=== PATIENT | female | born 1995 | race Caucasian/White ===

== ENCOUNTER 2016-04-13 21:37 | Emergency (ER) | payer BC ==
[~2016-04-13] VITALS: Ht 170.2 cm; Wt 106.5 kg
[~2016-04-13 21:37] MED LIST: PERM59LI8 TOP; PREN1TAB49 PO; [UNRECOGNIZED DRUG - CODE] TP
[2016-04-13 22:40] VITALS: Ht 170.2 cm; Wt 106.5 kg
--- NOTE | 2016-04-14 01:08 | ERD ---
ER Documentation Chief Complaint Date/Time DATE: 04/14/16 TIME: 01:06 Chief Complaint cough with whitish/greenish phlegm x 2 days, when it happens RLQ pain. HPI 20-year-old female presents to emergency department for complaints of cough for 2 days. Patient has been having cough with whitish greenish phlegm for the last 2 days, does not cough up any blood. Patient does not have any shortness breath or wheezing. Patient took some gkox-uyd-cptienn cough drops up with symptoms with mild relief. Patient noticed that she's been having right lower quadrant abdominal pain whenever she coughs, it got worse prior to coming here in emergency department, lasted for 30 minutes, sharp pain, 6/10 scale, only when she is coughing. Patient denies any nausea vomiting diarrhea. Patient denies hematuria or dysuria. Patient denies any incontinence. Patient denies any fever or chills. ROS All systems reviewed and are negative except as per history of present illness. Medications Home Meds Active Scripts Piperonyl Butoxide/Pyrethrins (Pyrethrin Lice Treatment) 118 Ml Liquid, 118 ML TP ONCE for 1 Day Prov:LARRY COLEMAN PA-C 09/15/15 Permethrin* (Nix* 1% Solution) 59 Ml Soln, 1 APPLIC TOP ONCE for 1 Day, BOTTLE Prov:LARRY COLEMAN PA-C 09/15/15 Reported Medications Vits W-Ca,Fe,Fa(<1MG) () 1 Tab Tablet, PO DAILY 10/04/10 Allergies Allergies: Coded Allergies: Penicillins (Verified Adverse Reaction, Mild, RASH, 10/04/10) PMhx/Soc Medical and Surgical Hx: pt denies Medical Hx History of Surgery: No Anesthesia Reaction: No Hx Neurological Disorder: No Hx Respiratory Disorders: No Hx Cardiac Disorders: No Hx Psychiatric Problems: No Hx Miscellaneous Medical Probl: No Hx Alcohol Use: No Hx Substance Use: No Hx Tobacco Use: No FmHx Family History: other (breast cancer) Physical Exam Vitals Vital Signs Date Time Temp Pulse Resp B/P Pulse Ox O2 Delivery O2 Flow Rate FiO2 04/13/16 22:40 99.0 87 20 145/90 100 Physical Exam GENERAL: The patient is well developed and appropriate for usual state of health, in no apparent distress. CHEST: Clear to auscultation bilaterally. There are no rales, wheezes or rhonchi. HEART: Regular rate and rhythm. No murmurs, clicks, rubs or gallops. No S3 or S4. ABDOMEN: Soft, nontender and nondistended. Good bowel sounds. No rebound or guarding. No gross peritonitis. No gross organomegaly or masses. No Brownlee sign or McBurney point tenderness. BACK: No midline or flank tenderness. EXTREMITIES: Equal pulses bilaterally. There is no peripheral clubbing, cyanosis or edema. No focal swelling or erythema. Full range of motion. Grossly neurovascularly intact. NEURO: Alert and oriented. Cranial nerves 2-12 intact. Motor strength in all 4 extremities with 5/5 strength. Sensation grossly intact. Normal speech and gait. SKIN: There is no apparent rash or petechia. The skin is warm and dry. HEMATOLOGIC AND LYMPHATIC: There is no evidence of excessive bruising or lymphedema. No gross cervical, axillary, or inguinal lymphadenopathy. Results 24 hrs Laboratory Tests Test 04/14/16 01:28 Bedside Urine Blood Trace-intact Bedside Urine Glucose (UA) Negative Bedside Urine Ketones (LAB) Negative Bedside Urine Leukocyte Esterase (L 1+ Bedside Urine Nitrite (LAB) Negative Bedside Urine Protein (LAB) Negative Bedside Urine pH (LAB) 5.5 PROCEDURE: Pelvic ultrasound, limited. CLINICAL INDICATION: Pelvic pain. TECHNIQUE: Multiple sonographic images of the pelvis were obtained utilizing a transabdominal technique. The images were reviewed on a PACS workstation. COMPARISON: None. FINDINGS: The uterus is visualized and measures 7.9 x 3.8 x 6.0 cm. No abnormal uterine mass is identified. The endometrial echo complex is homogeneous and measures 1.5 mm. There is no evidence for free fluid. The right ovary has a normal echotexture and measures 6.7 x 4.8 x 5.2 cm. The left ovary has a normal echotexture and measures 3.0 x 1.9 x 2.3 cm. There is normal flow to both ovaries. There is a hypoechoic cyst within the right ovary measuring 5.2 x 4.4 x 4.3 cm. No adnexal masses are identified. IMPRESSION: Right ovarian 5.2 cm cyst. .Vishnu Leslie, MD, MD Date Time Electronically viewed and signed by .Vishnu Leslie MD, MD on 04/14/2016 03:24 .T/ PROCEDURE: CT Abdomen and pelvis without contrast. CLINICAL INDICATION: Abdominal pain. TECHNIQUE: CT scan of the abdomen and pelvis was performed on a multi- detector high-resolution CT scanner. Contiguous axial images were obtained from the lung bases to the ischial tuberosities without intravenous contrast. Coronal and sagittal reformatted images were also obtained. Images were reviewed on the PACS workstation. One or more of the following dose reduction techniques were used: - Automated exposure control. - Adjustment of the mA and/or kV according to patient size. - Use of iterative reconstruction technique. Exam CTD/vol = 22.97 mGy. Total exam DLP = 1310.44 mGy-cm. COMPARISON: None. FINDINGS: Evaluation of the lung bases demonstrates no pleural or parenchymal disease. Abdomen: The liver is normal in size. There is no focal mass or dilatation of the biliary tree. The gallbladder is not distended. The spleen, pancreas and bilateral adrenal glands are within normal limits. Bilateral kidneys are normal in size with no contour deforming mass identified. There is a 1 mm calculus within the mid left kidney. There is no radiopaque ureteral calculus identified. There is no hydronephrosis or hydroureter. There is no retroperitoneal adenopathy. The abdominal aorta is of normal caliber. There is no abnormal bowel wall thickening or distension. There is no bowel obstruction or free air. A normal appendix is identified. There is no diverticulosis or diverticulitis. There is no ascites. Pelvis: The bladder is unremarkable. The uterus is unremarkable. There is a cyst within the right adnexa measuring 5.5 x 4.5 cm. There is no significant pelvic adenopathy or free fluid. Evaluation of the osseous structures demonstrates no suspicious lytic or blastic lesion. IMPRESSION: Right adnexal 5.5 cm cyst. Nonobstructing left renal calculus. Otherwise no acute abnormality identified within the abdomen and pelvis. .Vishnu Leslie MD, MD Date Time Electronically viewed and signed by .Vishnu Leslie MD, MD on 04/14/2016 02:12 .T/ CC: FRANCOISE VIDAL [employer] Procedures/MDM Medical Decision Making: Patient's symptoms of right lower quadrant pain after coughing can be muscular pain, patient also has an incidental finding of a right ovarian cyst which may be causing also the pain. Patient also has urinary tract infection and will be treated. No symptoms of pyelonephritis. There is low suspicion for abdominal emergencies at this time. Patients abdominal exam is normal at this time. Patients radiology exam does not show any abdominal emergencies at this time. There is low suspicion for appendicitis, cholecystitis , abdominal aortic aneurysms or peritonitis at this time. There is low suspicion for sepsis. Patient appears well and is hemodynamically stable. Patient's cough most likely is consistent with acute bronchitis, no symptoms of pneumonia at this time, lungs are clear, oxygenation is normal. Chest x-ray not indicated at this time. No symptoms of cardiopulmonary emergencies at this time. Disposition: Home. Condition: Stable Prescription guaifenesin DM, Zyrtec, albuterol, ibuprofen, [place], Macrobid Instructions: Patient is advised to take medications as prescribed. Patient is advised to rest, increase fluid intake and do brat diet for next 1-2 days and progress as tolerated. Patient is advised that if symptoms are worse, severe abdominal pain, uncontrolled vomiting, high fever, severe flank pain, worst signs and symptoms, to return to the emergency department immediately. Otherwise, patient can follow up with primary care doctor in 5-7 days. Departure Diagnosis: Primary Impression: Ovarian cyst Laterality: right Qualified Code: N83.201 - Cyst of right ovary Additional Impressions: UTI (urinary tract infection) Urinary tract infection type: acute cystitis Hematuria presence: without hematuria Qualified Code: N30.00 - Acute cystitis without hematuria Acute bronchitis Bronchitis organism: unspecified organism Qualified Code: J20.9 - Acute bronchitis, unspecified organism Condition: Stable Patient Instructions: Bronchitis, No Antibiotic (Adult), Ovarian Cyst, Understanding Urinary Tract Infections (UTIs) Additional Instructions: Patient is advised to take medications as prescribed. Patient is advised to rest, increase fluid intake and do brat diet for next 1-2 days and progress as tolerated. Patient is advised that if symptoms are worse, severe abdominal pain , uncontrolled vomiting, high fever, severe flank pain, worst signs and symptoms , to return to the emergency department immediately. Otherwise, patient can follow up with primary care doctor in 5-7 days. FRANCOISE VIDAL NP Apr 14, 2016 01:07 FRANCOISE VIDAL NP Apr 14, 2016 01:07
[2016-04-14 01:27] LABS: URINE BLOOD (Dip) POC Trace-intact (NEGATIVE)
--- NOTE | 2016-04-14 02:12 | RADRPT ---
PROCEDURE: CT Abdomen and pelvis without contrast. CLINICAL INDICATION: Abdominal pain. TECHNIQUE: CT scan of the abdomen and pelvis was performed on a multi-detector high-resolution CT scanner. Contiguous axial images were obtained from the lung bases to the ischial tuberosities wit hout intravenous contrast. Coronal and sagittal reformatted images were also obtained. Images were reviewed on the PACS workstation. One or more of the following dose reduction techniques were used: - Automated exposure control. - Adjustment of the mA and/or kV according to patient size. - Use of iterative reconstruction technique. Exam CTD/vol = 22.97 mGy. Total exam DLP = 1310.44 mGy-cm. COMPARISON: None. FINDINGS: Evaluation of the lung bases demonstrates no pleural or parenchymal disease. Abdomen: The liver is normal in size. There is no focal mass or dilatation of the biliary tree. T he gallbladder is not distended. The spleen, pancreas and bilateral adrenal glands are within paola l limits. Bilateral kidneys are normal in size with no contour deforming mass identified. There is a 1 mm calculus within the mid left kidney. There is no radiopaque ureteral calculus identified. There is no hydronephrosis or hydroureter. There is no retroperitoneal adenopathy. The abdominal a quang is of normal caliber. There is no abnormal bowel wall thickening or distension. There is no bowel obstruction or free air . A normal appendix is identified. There is no diverticulosis or diverticulitis. There is no asci seth. Pelvis: The bladder is unremarkable. The uterus is unremarkable. There is a cyst within the right adnexa measuring 5.5 x 4.5 cm. There is no significant pelvic adenopathy or free fluid. Evaluation of the osseous structures demonstrates no suspicious lytic or blastic lesion. IMPRESSION: Right adnexal 5.5 cm cyst. Nonobstructing left renal calculus. Otherwise no acute abnormality identified within the abdomen and pelvis. .Vishnu Leslie MD, MD Date Time Electronically viewed and signed by .Vishnu Leslie MD, MD on 04/14/2016 02:12 .T/
--- NOTE | 2016-04-14 03:24 | RADRPT ---
PROCEDURE: Pelvic ultrasound, limited. CLINICAL INDICATION: Pelvic pain. TECHNIQUE: Multiple sonographic images of the pelvis were obtained utilizing a transabdominal angela hnique. The images were reviewed on a PACS workstation. COMPARISON: None. FINDINGS: The uterus is visualized and measures 7.9 x 3.8 x 6.0 cm. No abnormal uterine mass is identified. T he endometrial echo complex is homogeneous and measures 1.5 mm. There is no evidence for free fluid. The right ovary has a normal echotexture and measures 6.7 x 4. 8 x 5.2 cm. The left ovary has a normal echotexture and measures 3.0 x 1.9 x 2.3 cm. There is norm al flow to both ovaries. There is a hypoechoic cyst within the right ovary measuring 5.2 x 4.4 x 4. 3 cm. No adnexal masses are identified. IMPRESSION: Right ovarian 5.2 cm cyst. .Vishnu Leslie MD, Date Time Electronically viewed and signed by .Vishnu Leslie MD, on 04/14/2016 03:24 .T/
[2016-04-14] MEDS ORDERED: IBUP-1542 PO (03:32)
[2016-04-14] MEDS ORDERED: CETI10CA PO (03:32)
[2016-04-14] MEDS ORDERED: NITR-58 PO (03:32)
[2016-04-14] MEDS ORDERED: GUAI120S26 PO (03:32)
[2016-04-14] MEDS ORDERED: HYDR-906 PO (03:32)
[2016-04-14] MEDS ORDERED: ALBU8.5H3 INH (03:32)
[2016-04-14 03:51] VITALS: BP 128/71; PULSE 96; RESP 18; TEMP 97.9
== END 2016-04-14 03:51 | disposition home or self-care (01) ==
LOC: FTE 21:37
DX: N83.201 Unspecified ovarian cyst, right side (principal); N30.00 Acute cystitis without hematuria; J20.9 Acute bronchitis, unspecified; R10.2 Pelvic and perineal pain
CPT/HCPCS: 74176; 76856; 81003; Z7502

== ENCOUNTER 2016-11-04 19:58 | Emergency (ER) | payer BC, OTHER ==
[~2016-11-04] VITALS: Ht 167.6 cm; Wt 109.5 kg
[~2016-11-04 19:58] MED LIST changes: +ALBU8.5H3 INH; +CETI10CA PO; +GUAI120S26 PO; +HYDR-906 PO; +IBUP-1542 PO; +NITR-58 PO
[2016-11-04 20:39] VITALS: Ht 167.6 cm; Wt 109.5 kg
[2016-11-04] MEDS ORDERED: IBUPROFEN 600 MG TAB PO ONE (21:30)
--- NOTE | 2016-11-04 21:34 | RADRPT ---
PROCEDURE: XR Bilateral Feet CLINICAL INDICATION: Ankle and foot pain post twisting TECHNIQUE: AP, oblique, and lateral radiographs of each foot were submitted. COMPARISON: None FINDINGS: Osseous structures: The osseous elements appear intact with no fracture identified. 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 The remaining joint spaces appear normal. Soft tissues: appear unremarkable. IMPRESSION: 1. 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 2. No fracture or dislocation is evident. Physician Yohannes Date Time Electronically viewed and signed by Physician Yohannes on 11/04/2016 21:34 /
--- NOTE | 2016-11-04 21:36 | RADRPT ---
PROCEDURE: XR bilateral Ankles CLINICAL INDICATION: Pain status post twisting TECHNIQUE: AP and lateral views were obtained of each ankle. COMPARISON: None FINDINGS: Osseous structures: Well mineralized and intact with no fracture or destructive process identified. Joint spaces: Well maintained with no significant erosions or spurring evident. Soft tissues: Appear unremarkable. IMPRESSION: Unremarkable bilateral ankle study. Physician Yohannes Date Time Electronically viewed and signed by Physician Yohannes on 11/04/2016 21:36 /
--- NOTE | 2016-11-04 21:54 | ERD ---
ER Documentation Chief Complaint Date/Time DATE: 11/04/16 TIME: 21:45 Chief Complaint twisted her R ankle after almost falling up a stairs today HPI 20-year-old female presents here in emergency department for complaints of bilateral ankle pain, bilateral foot pain after twisting it well walking down the stairs today. Patient described the pain as sharp pain, 6/10 scale, is worse upon movement. Patient denies any numbness or tingling. Patient denies any deformity. Patient did not take any medications for pain. ROS All systems reviewed and are negative except as per history of present illness. Medications Home Meds Active Scripts Albuterol Sulfate* (Proair HFA*) 8.5 Gm Hfa.aer.ad, 2 PUFF INH Q4H Y for WHEEZING AND SOB, #1 INHALER Prov:FRANCOISE VIDAL NP 04/14/16 Cetirizine Hcl* (Zyrtec*) 10 Mg Capsule, 10 MG PO DAILY, #30 TAB.CHEW Prov:FRANCOISE VIDAL NP 04/14/16 Ybepptuoqyh-R-Pdjzkzviwn Hb* (Guaifenesin* DM Syrup) 120 Ml Syrup, 10 ML PO Q4H Y for COUGH, #120 ML Prov:FRANCOISE VIDAL NP 04/14/16 Ibuprofen* (Motrin*) 600 Mg Tab, 600 MG PO Q6H Y for PAIN AND OR ELEVATED TEMP, #30 TAB Prov:FRANCOISE VIDAL NP 04/14/16 Hydrocodone/Acetaminophen ([place] 5-325 Tablet) 1 Each Tablet, 1 TAB PO Q6H Y for SEVERE PAIN LEVEL 7-10, #20 TAB Prov:FRANCOISE VIDAL NP 04/14/16 Nitrofurantoin Monohyd Macrocr* (Macrobid*) 100 Mg Capsr, 100 MG PO BID for 7 Days, CAP Prov:FRANCOISE VIDAL NP 04/14/16 Piperonyl Butoxide/Pyrethrins (Pyrethrin Lice Treatment) 118 Ml Liquid, 118 ML TP ONCE for 1 Day Prov:LARRY COLEMAN PA-C 09/15/15 Permethrin* (Nix* 1% Solution) 59 Ml Soln, 1 APPLIC TOP ONCE for 1 Day, BOTTLE Prov:LARRY COLEMAN PA-C 09/15/15 Reported Medications Vits W-Ca,Fe,Fa(<1MG) () 1 Tab Tablet, PO DAILY 10/04/10 Allergies Allergies: Coded Allergies: Penicillins (Verified Adverse Reaction, Mild, RASH, 10/04/10) PMhx/Soc Medical and Surgical Hx: pt denies Medical Hx, pt denies Surgical Hx History of Surgery: No Anesthesia Reaction: No Hx Neurological Disorder: No Hx Respiratory Disorders: No Hx Cardiac Disorders: No Hx Psychiatric Problems: Yes (DEPRESSION AND ANXIETY BUT ON ON MEDS.) Hx Miscellaneous Medical Probl: No Hx Alcohol Use: No Hx Substance Use: No Hx Tobacco Use: No Smoking Status: Never smoker FmHx Family History: No coronary disease, No diabetes, No other Physical Exam Vitals Vital Signs Date Time Temp Pulse Resp B/P Pulse Ox O2 Delivery O2 Flow Rate FiO2 11/04/16 20:39 99.2 90 18 135/70 97 Physical Exam GENERAL: The patient is well developed and appropriate for usual state of health, in no apparent distress. CHEST: Clear to auscultation bilaterally. There are no rales, wheezes or rhonchi. HEART: Regular rate and rhythm. No murmurs, clicks, rubs or gallops. No S3 or S4. ABDOMEN: Soft, nontender and nondistended. Good bowel sounds. No rebound or guarding. No gross peritonitis. No gross organomegaly or masses. No Brownlee sign or McBurney point tenderness. BACK: No midline or flank tenderness. EXTREMITIES: Able to do full range of motion of bilateral ankle and bilateral foot joints without any restriction. Noted swelling on the lateral malleolus and medial malleolus of bilateral ankles. No ecchymosis noted. No deformity noted. Equal pulses bilaterally.. Grossly neurovascularly intact. NEURO: Alert and oriented. Cranial nerves 2-12 intact. Motor strength in all 4 extremities with 5/5 strength. Sensation grossly intact. Normal speech and gait. SKIN: There is no apparent rash or petechia. The skin is warm and dry. HEMATOLOGIC AND LYMPHATIC: There is no evidence of excessive bruising or lymphedema. No gross cervical, axillary, or inguinal lymphadenopathy. Results 24 hrs Current Medications Medications (Trade) Dose Ordered Sig/Raul Route PRN Reason Start Time Stop Time Status Last Admin Dose Admin Ibuprofen (Motrin) 600 mg ONCE ONCE PO 11/04/16 21:30 11/04/16 21:31 DC 11/04/16 21:37 Patient was given medication for pain here in emergency department, after treatment, patient verbalized feeling much better. Patient's pain is improved. PROCEDURE: XR bilateral Ankles CLINICAL INDICATION: Pain status post twisting TECHNIQUE: AP and lateral views were obtained of each ankle. COMPARISON: None FINDINGS: Osseous structures: Well mineralized and intact with no fracture or destructive process identified. Joint spaces: Well maintained with no significant erosions or spurring evident. Soft tissues: Appear unremarkable. IMPRESSION: Unremarkable bilateral ankle study. Physician Yohannes Date Time Electronically viewed and signed by Physician Yohannes on 11/04/2016 21:36 RH/ CC: FRANCOISE VIDAL NP PROCEDURE: XR Bilateral Feet CLINICAL INDICATION: Ankle and foot pain post twisting TECHNIQUE: AP, oblique, and lateral radiographs of each foot were submitted. COMPARISON: None FINDINGS: Osseous structures: The osseous elements appear intact with no fracture identified. 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 The remaining joint spaces appear normal. Soft tissues: appear unremarkable. IMPRESSION: 1. 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 2. No fracture or dislocation is evident. Physician Yohannes Date Time Electronically viewed and signed by Physician Yohannes on 11/04/2016 21:34 RH/ CC: FRANCOISE VIDAL NP After receiving patients xray report, an [place] wrap was applied on the patients bilateral ankle and foot. After application of the [place] wrap, patient has intact sensation and circulation on distal area of the affected joint. Patient does not complain of numbness or tingling after application of the [place] wrap. Patient tolerated procedure well. Procedures/MDM Medical Decision Making: Patient's pain is most likely consistent with a contusion or a sprain. There is no suspicion for neurovascular compromise. Patient has intact sensation and circulation of the affected extremity. There is low suspicion for septic arthritis. Patient does not have any fever. Radiology exams of the affected area does not show any fracture or dislocation. Disposition: Home. Patient advised to take ibuprofen for pain. Patient was advised to elevate the affected area and apply ice on affected area. Patient was advised that if symptoms are worse, numbness, tingling, high fever, unable to move joint, worsening symptoms, to return to emergency department immediately. Otherwise, patient is advised to follow up with the primary care doctor in 5-7 days for reevaluation of symptoms. Departure Diagnosis: Primary Impression: Ankle pain Chronicity: acute Laterality: bilateral Qualified Code: M25.571 - Acute bilateral ankle pain Additional Impression: Foot pain, bilateral Condition: Stable Patient Instructions: Contusion, Foot, Sprain, Ankle, With X-Ray FRANCOISE VIDAL NP Nov 04, 2016 21:54
== END 2016-11-04 22:02 | disposition home or self-care (01) ==
LOC: FTE 19:58
DX: M25.571 Pain in right ankle and joints of right foot (principal); M79.672 Pain in left foot; M79.671 Pain in right foot
CPT/HCPCS: 73600; 73630; Z7502; Z7610

== ENCOUNTER 2017-03-27 04:16 | Emergency (ER) | END 2017-03-27 06:52 | disposition home or self-care (01) ==

== ENCOUNTER 2017-08-15 14:33 | Emergency (ER) | END 2017-08-15 14:53 | disposition home or self-care (01) ==

== ENCOUNTER 2018-01-18 21:23 | Emergency (ER) | END 2018-01-18 22:59 | disposition home or self-care (01) ==